=== PATIENT | female | born 1930 ===

== ENCOUNTER 2017-02-11 06:53 | Day surgery (SDC) | payer MEDICARE, MEDICAID ==
[2017-02-11 07:41] VITALS: BMI 21.2
--- NOTE | 2017-02-11 08:52 | CP.SDSHP ---
Same Day Surgery H & P - Previous Medical/Surgical History Comments: Arthritis, osteopenia - Allergies Allergies: Allergies No Known Allergies Allergy (Verified 10/10/16 15:35) - Current Medications Current Medications: See reconciliation sheet - Physical Exam General Appearance: WDW WN female in NAD Vital Signs: Vital Signs 02/11/17 07:32 Temperature 98.7 F Pulse Rate 77 Respiratory 19 Rate Blood Pressure 157/71 H O2 Sat by Pulse 100 Oximetry Mental Status: Alert & Oriented x3 Neuro: WNL Heart: WNL Lungs: WNL GI: WNL - {Optional Preform as Required} Abdomen: WNL - Impression Impression: Change in bowel habits Pt. Evaluated Today:Candidate for Anesthesia & Procedure: Yes - Date & Time Date: 02/11/17 Time: 08:52 Short Stay Discharge - Short Stay Discharge Admitting Diagnosis/Reason for Visit: CHANGE IN BOWEL HABITS Disposition: HOME/ ROUTINE
[2017-02-11] MEDS ORDERED: Propofol 10 mg/ml Inj (20 ML) ONE (08:53)
[2017-02-11 09:42] VITALS: TEMP 97
[2017-02-11 09:46] VITALS: O2SAT 100
[2017-02-11 10:07] VITALS: BP 134/73; PULSE 58; RESP 12
== END 2017-02-11 10:35 | disposition home or self-care (01) ==
LOC: C.ENDO 06:53
PROVIDERS: ATTEND Internal Medicine Gastroenterology
DX: D12.5 Benign neoplasm of sigmoid colon (principal); D12.4 Benign neoplasm of descending colon; D12.2 Benign neoplasm of ascending colon; D12.3 Benign neoplasm of transverse colon; K63.5 Polyp of colon; K57.30 Diverticulosis of large intestine without perforation or abscess without bleeding; M85.80 Other specified disorders of bone density and structure, unspecified site; M19.90 Unspecified osteoarthritis, unspecified site; Z79.899 Other long term (current) drug therapy
CPT/HCPCS: 45381; 45385; 88305; J2704

== ENCOUNTER 2017-06-06 19:52 | Emergency (ER) | payer OTHER, MEDICAID ==
[2017-06-06 19:52] VITALS: BMI 21.2
[2017-06-06 20:02] VITALS: RESP 18
[2017-06-06] MEDS ORDERED: Iohexol 240 (50 ml) PO STA (20:32)
[2017-06-06] MEDS ORDERED: Sodium Chloride 0.9% 1,000 ML IV ONE (20:32)
[2017-06-06] MEDS ORDERED: Sodium Chloride 0.9% 1,000 ML ONE ×2 (20:48)
[2017-06-06] MEDS ORDERED: Iohexol 240 (50 ml) ONE (20:48)
[2017-06-06 20:51] LABS: CHLORIDE 99 mmol/L (98-107); RBC URINE 1 /hpf (0-3); URINE BACTERIA OCC (<OCC); URINE BILIRUBIN NEGATIVE (NEGATIVE); URINE BLOOD 1+ (NEGATIVE); URINE CALCIUM OXALATE CRYSTALS MOD /hpf (<OCC); URINE COLOR Yellow (YELLOW); URINE GLUCOSE (UA) NORMAL (Normal); URINE KETONE NEGATIVE (NEGATIVE); URINE PROTEIN NEGATIVE (NEGATIVE); URINE UROBILINOGEN NORMAL mg/dL (0.2-1.0); WBC URINE 6 /hpf (0-5)
[2017-06-06 20:52] LABS: POTASSIUM 3.9 mmol/L (3.6-5.2); SODIUM 135 mmol/L (132-148)
[2017-06-06 20:54] LABS: BASO # 0.1 K/uL (0.0-0.2); BASO % 0.6 % (0.0-2.0); EOS # 0.5 K/uL (0.0-0.7); EOS % 5.1 % (0.0-4.0); LYMPH # 2.1 K/uL (1.0-4.3); LYMPH % 22.9 % (20.0-40.0); MEAN CELL VOLUME 87.3 fL (81.0-99.0); MEAN CORPUSCULAR HEMOGLOBIN 29.7 pg (27.0-31.0); MEAN PLATELET VOLUME 8.3 fL (7.2-11.7); MONO # 0.9 K/uL (0.0-0.8); MONO % 9.7 % (0.0-10.0); RED CELL DISTRIBUTION WIDTH 13.5 % (11.5-14.5)
[2017-06-06 20:55] LABS: ALB/GLOB RATIO 1.2 (1.0-2.1); ALKALINE PHOSPHATASE 95 U/L (38-126); ALT/SGPT 32 U/L (9-52); AST/SGOT 29 U/L (14-36); BILIRUBIN,TOTAL 0.6 mg/dL (0.2-1.3); BLOOD UREA NITROGEN 16 mg/dL (7-17); CALCIUM 9.3 mg/dl (8.6-10.4); CARBON DIOXIDE 24 mmol/L (22-30); GFR AFRICAN-AMERICAN > 60; GLUCOSE,RANDOM 151 mg/dL (65-105)
[2017-06-06 21:10] LABS: URINE LEUKOCYTE ESTERASE 1+ Leu/uL (Negative)
--- NOTE | 2017-06-06 21:23 | C.PDOC ---
History Of Present Illness 87 year old female presents to the ED for evaluation of upper abdominal pain which began around 2 days ago. Patient also reports mild nausea but denies vomiting, fever, chills, dysuria, hematuria, or recent travel. Time Seen by Provider: 06/06/17 20:18 Chief Complaint (Nursing): Abdominal Pain History Per: Patient History/Exam Limitations: no limitations Onset/Duration Of Symptoms: Days (2) Current Symptoms Are (Timing): Still Present Location Of Pain/Discomfort: RUQ, LUQ Radiation Of Pain To:: None Quality Of Discomfort: "Pain" Associated Symptoms: Nausea (mild). denies: Fever, Chills, Vomiting Exacerbating Factors: None Alleviating Factors: None Recent travel outside of the [place]: No Additional History Per: Patient Abnormal Vaginal Bleeding: No Past Medical History Reviewed: Historical Data, Nursing Documentation, Vital Signs Vital Signs: Last Vital Signs Temp 97 F L 06/06/17 23:21 Pulse 82 06/06/17 23:21 Resp 18 06/06/17 23:21 BP 155/66 H 06/06/17 23:21 Pulse Ox 97 06/06/17 23:21 - Medical History PMH: Arthritis, Osteoporosis, Pancreatitis Denies: Chronic Kidney Disease Surgical History: Endoscopy, Tonsillectomy Family History: States: Unknown Family Hx - Social History Hx Tobacco Use: No Hx Alcohol Use: No Hx Substance Use: No - Immunization History Hx Tetanus Toxoid Vaccination: Yes Hx Influenza Vaccination: Yes (Last week) Hx Pneumococcal Vaccination: Yes (Last week) Review Of Systems Constitutional: Negative for: Fever, Chills Gastrointestinal: Positive for: Abdominal Pain (upper abdomen ) Genitourinary: Negative for: Dysuria, Hematuria Physical Exam - Physical Exam Appears: Non-toxic, No Acute Distress Skin: Normal Color, Warm, Dry Head: Atraumatic, Normacephalic Eye(s): bilateral: Normal Inspection Oral Mucosa: Moist Neck: Supple Chest: Symmetrical, No Deformity, No Tenderness Cardiovascular: Rhythm Regular, No Murmur Respiratory: Normal Breath Sounds, No Rales, No Rhonchi, No Wheezing Gastrointestinal/Abdominal: Soft, Tenderness (to epigastric and left upper quadrant on palpation ), No Guarding, No Rebound Extremity: Normal ROM, Capillary Refill (less than 2 seconds) Neurological/Psych: Oriented x3, Normal Speech, Normal Cognition Gait: Steady ED Course And Treatment - Laboratory Results Result Diagrams: 06/06/17 20:41 06/06/17 20:41 O2 Sat by Pulse Oximetry: 99 (on RA ) Pulse Ox Interpretation: Normal Progress Note: CT A/P, bloodwork, and urinalysis ordered and reviewed. Pepcid IVP and IV Fluids administered. Disposition - Disposition Referrals: Deepthi Ibrahim MD [Primary Care Provider] - Disposition: HOME/ ROUTINE Disposition Time: 22:40 Condition: GOOD Additional Instructions: Thank you for letting us take care of you today. Your provider was Dr. Neff. You were treated for urinary tract infection. The emergency medical care you received today was directed at your acute symptoms. If you were prescribed any medication, please fill it and take as directed. It may take several days for your symptoms to resolve. Return to the Emergency Department if your symptoms worsen, do not improve, or if you have any other problems. Please contact your doctor or call one of the physicians/clinics you have been referred to that are listed on the Patient Visit Information form that is included in your discharge packet. Bring any paperwork you were given at discharge with you along with any medications you are taking to your follow up visit. Our treatment cannot replace ongoing medical care by a primary care provider (PCP) outside of the emergency department. Thank you for allowing the [facility] team to be part of your care today. Follow up with your doctor in 2-3 days for re-evaluation and further management. Prescriptions: Nitrofurantoin Macrocrystals [Macrobid] 100 mg PO BID #10 cap Instructions: Urinary Tract Infection in Women (ED) - Clinical Impression Clinical Impression: Urinary tract infection, Abdominal pain - Scribe Statement The provider has reviewed the documentation as recorded by the Scribe (Diana Conway) Provider Attestation: All medical record entries made by the Scribe were at my direction and personally dictated by me. I have reviewed the chart and agree that the record accurately reflects my personal performance of the history, physical exam, medical decision making, and the department course for this patient. I have also personally directed, reviewed, and agree with the discharge instructions and disposition.
[2017-06-06] MEDS ORDERED: Iodixanol 320 MG/ML 100 ML BOTTLE IV ONE (21:30)
--- NOTE | 2017-06-06 22:38 | CT ---
EXAM: CT Abdomen and Pelvis With Intravenous Contrast CLINICAL HISTORY: 87 years old, female; Pain; Abdominal pain; Flank; Left lower quadrant (llq); Additional info: Abd pain - mid-abdominal pain TECHNIQUE: Axial computed tomography images of the abdomen and pelvis with intravenous contrast. All CT scans at this facility use one or more dose reduction techniques, viz.: automated exposure control; ma/kV adjustment per patient size (including targeted exams where dose is matched to indication; i.e. head); or iterative reconstruction technique. Coronal and sagittal reformatted images were created and reviewed. CONTRAST: 100 mL of visipaqie 320 administered intravenously. COMPARISON: No relevant prior studies available. FINDINGS: Lower thorax: Bibasilar interstitial thickening. Small hiatal hernia. ABDOMEN: Liver: No acute findings. Gallbladder and bile ducts: The gallbladder is decompressed. No calcified stones. No significant intra- or extrahepatic biliary ductal dilation. Pancreas: Increased attenuation within the head of the pancreas, a nonspecific finding. The remainder of the pancreas enhances homogeneously. No ductal dilation. No discrete mass. No peripancreatic inflammation. Spleen: No acute findings. Adrenals: No acute findings. Kidneys and ureters: No acute findings. No hydronephrosis or renal calculi. No discrete solid mass. PELVIS: Bladder: The bladder is moderately distended. Reproductive: The uterus is atrophic. Appendix: The air filled appendix is of normal caliber (series 3, image 122; series 601, image 41). ABDOMEN and PELVIS: Stomach and bowel: Oral contrast extends to the distal small bowel, without obstruction. No mucosal thickening. Peritoneum: No significant fluid collection. No free air. Lymph nodes: No pathologically enlarged lymph nodes. Vasculature: Calcified atherosclerotic disease. Bones: No acute fracture. IMPRESSION: No acute intra-abdominal pathology, as detailed above.
[2017-06-06 23:22] VITALS: BP 155/66; PULSE 82; TEMP 97
[2017-06-07 00:42] VITALS: O2SAT 99
== END 2017-06-06 23:25 | disposition home or self-care (01) ==
LOC: C.ER 19:52 → SUPCPDRO 19:52 → C.ER 23:25
DX: N39.0 Urinary tract infection, site not specified (principal); R10.10 Upper abdominal pain, unspecified
CPT/HCPCS: 74177; 80053; 81001; 83690; 85025; 96374; 99284; J7040; Q9966; Q9967

== ENCOUNTER 2017-08-07 10:20 | Emergency (ER) | payer MEDICARE, OTHER ==
[2017-08-07 10:21] VITALS: BMI 23.0
[2017-08-07 10:36] VITALS: O2SAT 96
[2017-08-07] MEDS ORDERED: Sodium Chloride 0.9% 1,000 ML IV ONE (10:47)
--- NOTE | 2017-08-07 10:54 | C.PDOC ---
History Of Present Illness 87 year old female presents to the ED for evaluation of abdominal pain for 1 day. Patient reports she goes to see Dr. Bucio. Patient also c/o occasional cough but denies fever, nausea, vomit, diarrhea, dysuria, hematuria, back pain. Time Seen by Provider: 08/07/17 10:38 Chief Complaint (Nursing): Abdominal Pain History Per: Patient History/Exam Limitations: no limitations Onset/Duration Of Symptoms: Hrs Current Symptoms Are (Timing): Still Present Location Of Pain/Discomfort: LUQ Radiation Of Pain To:: None Quality Of Discomfort: "Pain" Associated Symptoms: denies: Fever, Nausea, Vomiting, Diarrhea, Constipation Exacerbating Factors: denies: None Alleviating Factors: denies: None Recent travel outside of the [place]: No Additional History Per: Patient Abnormal Vaginal Bleeding: No Past Medical History Reviewed: Historical Data, Nursing Documentation, Vital Signs Vital Signs: Last Vital Signs Temp 97.6 F 08/07/17 12:57 Pulse 67 08/07/17 12:57 Resp 18 08/07/17 12:57 BP 146/68 08/07/17 12:57 Pulse Ox 96 08/07/17 13:34 - Medical History PMH: Arthritis, Osteoporosis, Pancreatitis Denies: Chronic Kidney Disease Surgical History: Endoscopy, Tonsillectomy Family History: States: Unknown Family Hx - Social History Hx Tobacco Use: No Hx Alcohol Use: No Hx Substance Use: No - Immunization History Hx Tetanus Toxoid Vaccination: Yes Hx Influenza Vaccination: No Hx Pneumococcal Vaccination: Yes Review Of Systems Constitutional: Negative for: Fever, Chills Cardiovascular: Negative for: Chest Pain, Palpitations Respiratory: Negative for: Cough, Shortness of Breath Gastrointestinal: Positive for: Abdominal Pain. Negative for: Nausea, Vomiting Genitourinary: Negative for: Dysuria, Hematuria Musculoskeletal: Negative for: Back Pain Skin: Negative for: Rash Neurological: Negative for: Weakness, Numbness Physical Exam - Physical Exam Appears: Non-toxic, No Acute Distress Skin: Normal Color, Warm, Dry Head: Atraumatic, Normacephalic Nose: No Discharge Oral Mucosa: Moist Neck: Normal Cardiovascular: Rhythm Regular Respiratory: Normal Breath Sounds Gastrointestinal/Abdominal: Soft, Tenderness (Mild LUQ), No Guarding, No Rebound Extremity: Normal ROM, No Pedal Edema, No Calf Tenderness, No Swelling Neurological/Psych: Oriented x3 ED Course And Treatment - Laboratory Results Result Diagrams: 08/07/17 11:05 08/07/17 11:05 Lab Interpretation: Normal ECG: Interpreted By Me ECG Rhythm: Sinus Rhythm, L BBB ECG Interpretation: No Changes From Prior Rate From EC O2 Sat by Pulse Oximetry: 96 (On RA) Pulse Ox Interpretation: Normal Progress Note: Treated with IVF NSS, pepcid. On re-evaluation abdomen soft non- tender, in no distress Reassessment Condition: Improved Medical Decision Making Medical Decision Making: Plan: * Blood work ordered * EKG ordered * Obstructive series ordered * Pepcid 20 mg IVP given * IV fluids given * UA ordered Disposition Counseled Patient/Family Regarding: Studies Performed, Diagnosis, Need For Followup, Rx Given - Disposition Referrals: Krishna Pickering MD [Non-Staff] - Disposition: HOME/ ROUTINE Disposition Time: 13:30 Condition: STABLE Additional Instructions: Follow up with PMD for further evaluation Prescriptions: Famotidine [Pepcid AC] 10 mg PO BID #20 tablet Instructions: Gastritis (ED), Diet for Ulcers and Gastritis (ED), Acute Abdominal Pain (ED) Forms: [employer] (Kazakh) - POA Present On Arrival: None - Clinical Impression Clinical Impression: Abdominal pain, Gastritis - PA / SERVICE DESK ANALYST / Resident Statement MD/DO has reviewed & agrees with the documentation as recorded. - Scribe Statement The provider has reviewed the documentation as recorded by the Scribe Jesus Nieto All medical record entries made by the Scribe were at my direction and personally dictated by me. I have reviewed the chart and agree that the record accurately reflects my personal performance of the history, physical exam, medical decision making, and the department course for this patient. I have also personally directed, reviewed, and agree with the discharge instructions and disposition.
[2017-08-07] MEDS ORDERED: Sodium Chloride 0.9% 1,000 ML ONE (11:06)
[2017-08-07 11:14] LABS: BASO % 0.5 % (0.0-2.0); EOS # 0.2 K/uL (0.0-0.7); EOS % 2.3 % (0.0-4.0); HEMATOCRIT 42.9 % (34.0-47.0); LYMPH # 1.7 K/uL (1.0-4.3); MEAN CELL VOLUME 88.3 fL (81.0-99.0); MEAN CORPUSCULAR HEMOGLOBIN 29.1 pg (27.0-31.0); MEAN PLATELET VOLUME 8.1 fL (7.2-11.7); MONO # 0.7 K/uL (0.0-0.8); MONO % 8.9 % (0.0-10.0); RED CELL DISTRIBUTION WIDTH 13.9 % (11.5-14.5); WHITE BLOOD COUNT 8.1 K/uL (4.8-10.8)
[2017-08-07 11:22] LABS: ALB/GLOB RATIO 1.3 (1.0-2.1); ALKALINE PHOSPHATASE 86 U/L (38-126); ALT/SGPT 27 U/L (9-52); AST/SGOT 26 U/L (14-36); BILIRUBIN,TOTAL 0.5 mg/dL (0.2-1.3); BLOOD UREA NITROGEN 15 mg/dL (7-17); CALCIUM 8.8 mg/dl (8.6-10.4); CARBON DIOXIDE 31 mmol/L (22-30); CHLORIDE 102 mmol/L (98-107); GFR AFRICAN-AMERICAN > 60; GLUCOSE,RANDOM 121 mg/dL (65-105); SODIUM 143 mmol/L (132-148); TOTAL PROTEIN 7.6 g/dL (6.3-8.3)
--- NOTE | 2017-08-07 12:14 | RAD ---
PROCEDURE: Radiographs of the chest and abdomen (obstructive series) HISTORY: Abd Pain COMPARISON: No prior. TECHNIQUE: AP radiograph of the chest, with upright and supine radiographs of the abdomen. FINDINGS: CHEST: Lungs: Clear. Cardiovascular: Normal size heart. No pulmonary vascular congestion. Pleura: No pleural fluid. No pneumothorax. 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 ABDOMEN AND PELVIS: Bowel: Mild retained feces. No evidence of bowel obstruction. Free air: None. Bones: Unremarkable. Other findings: None. IMPRESSION: Unremarkable radiographs of chest and abdomen. No evidence of mechanical bowel obstruction.
[2017-08-07 12:24] LABS: URINE BILIRUBIN NEGATIVE (NEGATIVE); URINE BLOOD 1+ (NEGATIVE); URINE COLOR Yellow (YELLOW); URINE GLUCOSE (UA) NORMAL (Normal); URINE KETONE NEGATIVE (NEGATIVE); URINE LEUKOCYTE ESTERASE TRACE Leu/uL (Negative); URINE PROTEIN NEGATIVE (NEGATIVE); URINE UROBILINOGEN NORMAL mg/dL (0.2-1.0)
[2017-08-07 12:29] LABS: RBC URINE 4 /hpf (0-3); URINE BACTERIA RARE (<OCC)
[2017-08-07 12:30] LABS: WBC URINE 1 /hpf (0-5)
[2017-08-07 12:58] VITALS: BP 146/68; PULSE 67; RESP 18; TEMP 97.6
--- NOTE | 2017-08-12 03:23 | CARD ---
APPROVED REPORT EKG Measurement Heart [id number] <Conclusion> Normal sinus rhythm Left bundle branch block Abnormal ECG
== END 2017-08-07 14:09 | disposition home or self-care (01) ==
LOC: C.ER 10:20
DX: K29.70 Gastritis, unspecified, without bleeding (principal); R10.12 Left upper quadrant pain
CPT/HCPCS: 74022; 80053; 81001; 83690; 84484; 85025; 96374; 99284; J7040

== ENCOUNTER 2017-08-19 11:27 | Emergency (ER) | payer OTHER ==
[2017-08-19 11:27] VITALS: BMI 23.0
[2017-08-19 11:43] VITALS: TEMP 98
[2017-08-19] MEDS ORDERED: Iohexol 240 (50 ml) PO STA (13:20)
[2017-08-19] MEDS ORDERED: Lactated Ringer's 1,000 ML IV STA (13:20)
[2017-08-19] MEDS ORDERED: Iohexol 240 (50 ml) ONE (13:41)
[2017-08-19] MEDS ORDERED: Lactated Ringer's 1,000 ML ONE (13:41)
[2017-08-19 13:47] LABS: BASO % 0.5 % (0.0-2.0); EOS # 0.1 K/uL (0.0-0.7); EOS % 1.6 % (0.0-4.0); HEMATOCRIT 43.7 % (34.0-47.0); LYMPH # 2.2 K/uL (1.0-4.3); LYMPH % 24.4 % (20.0-40.0); MEAN CELL VOLUME 88.2 fL (81.0-99.0); MEAN CORPUSCULAR HEMOGLOBIN 29.7 pg (27.0-31.0); MEAN CORPUSCULAR HGB CONC 33.7 g/dL (33.0-37.0); MONO # 0.9 K/uL (0.0-0.8); MONO % 9.9 % (0.0-10.0); RED CELL DISTRIBUTION WIDTH 14.2 % (11.5-14.5); WHITE BLOOD COUNT 9.2 K/uL (4.8-10.8)
[2017-08-19 13:56] LABS: RBC URINE 7 /hpf (0-3); URINE BACTERIA RARE (<OCC); URINE BILIRUBIN NEGATIVE (NEGATIVE); URINE BLOOD 1+ (NEGATIVE); URINE COLOR Straw (YELLOW); URINE GLUCOSE (UA) NORMAL (Normal); URINE KETONE NEGATIVE (NEGATIVE); URINE LEUKOCYTE ESTERASE 2+ Leu/uL (Negative); URINE PROTEIN NEGATIVE (NEGATIVE); URINE UROBILINOGEN NORMAL mg/dL (0.2-1.0); WBC URINE 8 /hpf (0-5)
[2017-08-19 14:10] LABS: POTASSIUM 3.7 mmol/L (3.6-5.2)
[2017-08-19 14:17] LABS: ALKALINE PHOSPHATASE 101 U/L (38-126); ALT/SGPT 31 U/L (9-52); AST/SGOT 34 U/L (14-36); BILIRUBIN,TOTAL 0.5 mg/dL (0.2-1.3); BLOOD UREA NITROGEN 16 mg/dL (7-17); CARBON DIOXIDE 30 mmol/L (22-30); CHLORIDE 100 mmol/L (98-107); GFR AFRICAN-AMERICAN > 60; GLUCOSE,RANDOM 119 mg/dL (65-105); SODIUM 139 mmol/L (132-148); TOTAL PROTEIN 9.1 g/dL (6.3-8.3)
--- NOTE | 2017-08-19 15:58 | C.PDOC ---
History Of Present Illness 87yo female presents to ED with complaints of abdominal pain for the past couple days. Patient states pain was epigastric and now is present in her right lower quadrant. She denies any nausea, vomiting, fever, change in appetite, dysuria, hematuria, or bloody stools. No other complaints. Time Seen by Provider: 08/19/17 13:15 Chief Complaint (Nursing): Abdominal Pain History Per: Patient History/Exam Limitations: no limitations Onset/Duration Of Symptoms: Days Current Symptoms Are (Timing): Still Present Location Of Pain/Discomfort: RLQ, Epigastric Associated Symptoms: denies: Fever, Nausea, Vomiting, Urinary Symptoms Past Medical History Reviewed: Historical Data, Nursing Documentation, Vital Signs Vital Signs: Last Vital Signs Temp 98 F 08/19/17 11:39 Pulse 65 08/19/17 17:18 Resp 20 08/19/17 17:18 BP 157/67 H 08/19/17 17:18 Pulse Ox 98 08/19/17 17:18 - Medical History PMH: Arthritis, Osteoporosis, Pancreatitis Denies: Chronic Kidney Disease Surgical History: Endoscopy, Tonsillectomy Family History: States: Unknown Family Hx - Social History Hx Tobacco Use: No Hx Alcohol Use: No Hx Substance Use: No - Immunization History Hx Tetanus Toxoid Vaccination: Yes Hx Influenza Vaccination: No Hx Pneumococcal Vaccination: Yes Review Of Systems Except As Marked, All Systems Reviewed And Found Negative. Constitutional: Negative for: Fever Gastrointestinal: Positive for: Abdominal Pain. Negative for: Nausea, Vomiting , Hematochezia Genitourinary: Negative for: Dysuria, Hematuria Physical Exam - Physical Exam Appears: Non-toxic, No Acute Distress Skin: Normal Color, Warm Head: Atraumatic, Normacephalic Eye(s): bilateral: Normal Inspection Nose: Normal Neck: Normal ROM, Supple Cardiovascular: Rhythm Regular Respiratory: Normal Breath Sounds Gastrointestinal/Abdominal: Soft, Tenderness (mild right lower quadrant tenderness) Back: Normal Inspection Extremity: Normal ROM, No Deformity, No Swelling Neurological/Psych: Oriented x3, Normal Speech, Normal Cognition ED Course And Treatment - Laboratory Results Result Diagrams: 08/19/17 13:42 08/19/17 13:42 O2 Sat by Pulse Oximetry: 100 (RA) Pulse Ox Interpretation: Normal Medical Decision Making Medical Decision Making: Plan: -- CT Abdomen/Pelvis with Contrast -- Labs -- Lactated Ringers IV -- Pepcid 20 mg IVP Disposition - Disposition Referrals: Marilyn Nolan, [Non-Staff] - Disposition: HOME/ ROUTINE Disposition Time: 16:50 Condition: IMPROVED Additional Instructions: Thank you for letting us take care of you today. The emergency medical care you received today was directed at your acute symptoms. If you were prescribed any medication, please fill it and take as directed. It may take several days for your symptoms to resolve. Return to the Emergency Department if your symptoms worsen, do not improve, or if you have any other problems. Please contact your doctor or call one of the physicians/clinics you have been referred to that are listed on the Patient Visit Information form that is included in your discharge packet. Bring any paperwork you were given at discharge with you along with any medications you are taking to your follow up visit. Our treatment cannot replace ongoing medical care by a primary care provider (PCP) outside of the emergency department. Thank you for allowing the [facility] team to be part of your care today. Follow up with your doctor or the clinic for outpatient care and management. Prescriptions: Ranitidine HCl [Zantac] 150 mg PO BID #20 tablet Instructions: Gastritis (ED) Forms: [facility] (Kazakh) - Clinical Impression Clinical Impression: Abdominal pain - Scribe Statement The provider has reviewed the documentation as recorded by the Herlinda Ramirez Provider Attestation: All medical record entries made by the Herlinda were at my direction and personally dictated by me. I have reviewed the chart and agree that the record accurately reflects my personal performance of the history, physical exam, medical decision making, and the department course for this patient. I have also personally directed, reviewed, and agree with the discharge instructions and disposition.
[2017-08-19] MEDS ORDERED: Iodixanol 320 MG/ML 100 ML BOTTLE IV ONE (16:12)
--- NOTE | 2017-08-19 16:46 | CT ---
PROCEDURE: CT Abdomen and Pelvis with contrast HISTORY: RLQ tenderness COMPARISON: Comparison is with TECHNIQUE: Contrast dose: 100 mL Visipaque 320. Axial and reformatted coronal and sagittal CT images of the abdomen and pelvis were obtained after IV and oral contrast administration. Radiation dose: Total exam DLP = 277.21 mGy-cm. This CT exam was performed using one or more of the following dose reduction techniques: Automated exposure control, adjustment of the mA and/or kV according to patient size, and/or use of iterative reconstruction technique. FINDINGS: LOWER THORAX: Unremarkable. LIVER: Unremarkable. No gross lesion or ductal dilatation. GALLBLADDER AND BILE DUCTS: Unremarkable. PANCREAS: No evidence of acute pancreatitis. The main pancreatic duct is not dilated. Pancreas demonstrate mild heterogeneous attenuation and appears slightly small in size. SPLEEN: Unremarkable. ADRENALS: Unremarkable. No mass. KIDNEYS AND URETERS: Unremarkable. No hydronephrosis. No solid mass. VASCULATURE: Unremarkable. No aortic aneurysm. Moderate atherosclerotic disease and scattered foci of calcification are again noted. BOWEL: Unremarkable. No obstruction. No gross mural thickening. APPENDIX: There is no evidence of appendicitis. PERITONEUM: Unremarkable. No free fluid. No free air. LYMPH NODES: Unremarkable. No enlarged lymph nodes. BLADDER: Unremarkable. REPRODUCTIVE: Unremarkable. BONES: No acute fracture. OTHER FINDINGS: Foci of subcutaneous calcification at the posterior aspect of the buttocks are noted bilaterally. IMPRESSION: No evidence of acute pathology in the abdomen and pelvis. No CT evidence of acute cholecystitis pancreatitis or appendicitis. No significant interval change noted since the previous exam.
[2017-08-19 16:49] VITALS: RESP 20
[2017-08-19 17:18] VITALS: BP 157/67; PULSE 65
[2017-08-19 18:42] VITALS: O2SAT 100
--- NOTE | 2017-08-20 18:29 | CARD ---
APPROVED REPORT EKG Measurement Heart [id number] <Conclusion> Normal sinus rhythm Left bundle branch block Abnormal ECG
== END 2017-08-19 17:28 | disposition home or self-care (01) ==
LOC: C.ER 11:27
DX: R10.9 Unspecified abdominal pain (principal)
CPT/HCPCS: 74177; 80053; 81001; 83690; 85025; 87086; 93005; 96374; 99285; J7120; Q9966; Q9967

== ENCOUNTER 2017-09-09 06:20 | Day surgery (SDC) | payer OTHER ==
[2017-09-09] MEDS ORDERED: Propofol 10 mg/ml Inj (20 ML) ONE ×2 (07:55→08:26)
[2017-09-09] MEDS ORDERED: Lidocaine Hydrochloride 5 ML INJ ONE (08:27)
[2017-09-09 08:42] VITALS: TEMP 97.8
[2017-09-09 08:49] VITALS: O2SAT 100
[2017-09-09 09:12] VITALS: BP 135/65; PULSE 68; RESP 16
== END 2017-09-09 09:50 | disposition home or self-care (01) ==
LOC: C.ENDO 06:20
PROVIDERS: ATTEND Internal Medicine
DX: Z87.19 Personal history of other diseases of the digestive system (principal); K82.8 Other specified diseases of gallbladder; K29.70 Gastritis, unspecified, without bleeding; K44.9 Diaphragmatic hernia without obstruction or gangrene
CPT/HCPCS: 43231; 88305; 88312; 88313; 88342; J2704

== ENCOUNTER 2017-10-01 19:58 | Emergency (ER) | payer OTHER ==
[2017-10-01 19:58] VITALS: BMI 23.0
--- NOTE | 2017-10-01 20:50 | C.PDOC ---
History Of Present Illness 87yo female with history of arthritis, gastritis, and pancreatitis presents to ED with various complaints. She stats for the past few weeks, she has had diffuse bodyaches, back pain, shoulder pain and hip pain as well. She denies any trauma or injuries. Patient also reports abdominal pain; she denies any nausea, vomiting, diarrhea or constipation. of note, patient has been seen at this facility multiple times for similar presentation. Time Seen by Provider: 10/01/17 20:32 Chief Complaint (Nursing): Back Pain History Per: Patient History/Exam Limitations: no limitations Onset/Duration Of Symptoms: Persistent Current Symptoms Are (Timing): Still Present Quality Of Discomfort: "Pain" Past Medical History Reviewed: Historical Data, Nursing Documentation, Vital Signs Vital Signs: Last Vital Signs Temp 98.1 F 10/01/17 20:04 Pulse 71 10/01/17 20:04 Resp 20 10/01/17 20:04 BP 134/78 10/01/17 20:04 Pulse Ox 100 10/01/17 21:26 - Medical History PMH: Arthritis, Gastritis, Osteoporosis, Pancreatitis Denies: Chronic Kidney Disease Surgical History: Endoscopy, Tonsillectomy Family History: States: Unknown Family Hx - Social History Hx Tobacco Use: No Hx Alcohol Use: No Hx Substance Use: No - Immunization History Hx Tetanus Toxoid Vaccination: No Hx Influenza Vaccination: Yes Hx Pneumococcal Vaccination: No Review Of Systems Except As Marked, All Systems Reviewed And Found Negative. Constitutional: Negative for: Fever, Chills Gastrointestinal: Positive for: Abdominal Pain. Negative for: Nausea, Vomiting , Diarrhea Musculoskeletal: Positive for: Shoulder Pain, Back Pain, Other (hip pain) Physical Exam - Physical Exam Appears: Non-toxic, No Acute Distress Skin: Warm, Dry Head: Atraumatic, Normacephalic Eye(s): bilateral: Normal Inspection Neck: Normal ROM, No Midline Cervical Tenderness, No Paracervical Tenderness, Supple Chest: Symmetrical Cardiovascular: Rhythm Regular Respiratory: Normal Breath Sounds Gastrointestinal/Abdominal: Soft, Tenderness (mild epigastric tenderness) Back: Normal Inspection, No CVA Tenderness, No Vertebral Tenderness Extremity: Normal ROM, No Tenderness, No Pedal Edema Neurological/Psych: Oriented x3 ED Course And Treatment - Laboratory Results Result Diagrams: 10/01/17 20:57 10/01/17 20:57 O2 Sat by Pulse Oximetry: 100 (RA) Pulse Ox Interpretation: Normal Medical Decision Making Medical Decision Making: Impression: Abdominal pain, musculoskeletal pain, arthritis- no h/o of trauma- labs imaging pending Plan: -- Zofran 4mg IVP -- Protonix 40mg IVP -- Labs pt reassesed abd soft no ttp, pt with 4 ct abd/pelvis in last year, pain resolved. no h/o of trauma. advise contineud outpt fu and return precautions Disposition - Disposition Disposition: HOME/ ROUTINE Disposition Time: 21:25 Condition: STABLE Additional Instructions: please follow up with your doctor. you may need additional workup as an outpatient. return to er with any worsening symptoms or concerns. Instructions: Acute Abdominal Pain (ED), Arthralgia (ED) Forms: [employer] (Luxembourgish) Print Language: SLOVENIAN - Clinical Impression Clinical Impression: Abdominal pain, Body aches - Scribe Statement The provider has reviewed the documentation as recorded by the Scribe (Ashley Ramirez) Provider Attestation: All medical record entries made by the Scribe were at my direction and personally dictated by me. I have reviewed the chart and agree that the record accurately reflects my personal performance of the history, physical exam, medical decision making, and the department course for this patient. I have also personally directed, reviewed, and agree with the discharge instructions and disposition.
[2017-10-01 21:02] LABS: BASO % 0.5 % (0.0-2.0); EOS # 0.1 K/uL (0.0-0.7); EOS % 1.6 % (0.0-4.0); HEMOGLOBIN 12.9 g/dL (11.0-16.0); LYMPH % 22.4 % (20.0-40.0); MEAN CELL VOLUME 88.4 fL (81.0-99.0); MEAN CORPUSCULAR HEMOGLOBIN 30.4 pg (27.0-31.0); MEAN CORPUSCULAR HGB CONC 34.4 g/dL (33.0-37.0); MEAN PLATELET VOLUME 7.8 fL (7.2-11.7); MONO # 0.6 K/uL (0.0-0.8); MONO % 7.1 % (0.0-10.0); NEUT # 6.1 K/uL (1.8-7.0); NEUT % 68.4 % (50.0-75.0); RBC 4.25 Mil/uL (3.80-5.20); RED CELL DISTRIBUTION WIDTH 14.4 % (11.5-14.5); WHITE BLOOD COUNT 8.9 K/uL (4.8-10.8)
[2017-10-01 21:10] LABS: INR 1.2; PROTHROMBIN TIME 12.9 SECONDS (9.7-12.2); SQUAMOUS EPITHIAL 1 /hpf (0-5); URINE BILIRUBIN NEGATIVE (NEGATIVE); URINE BLOOD 1+ (NEGATIVE); URINE CLARITY Clear (Clear); URINE COLOR Straw (YELLOW); URINE GLUCOSE (UA) NORMAL (Normal); URINE LEUKOCYTE ESTERASE TRACE Leu/uL (Negative); URINE NITRATE NEGATIVE (NEGATIVE); URINE PROTEIN NEGATIVE (NEGATIVE); URINE UROBILINOGEN NORMAL mg/dL (0.2-1.0)
[2017-10-01 21:13] LABS: ALB/GLOB RATIO 1.2 (1.0-2.1); ALBUMIN 3.8 g/dL (3.5-5.0); ALT/SGPT 25 U/L (9-52); AST/SGOT 23 U/L (14-36); BLOOD UREA NITROGEN 10 mg/dL (7-17); CALCIUM 8.8 mg/dl (8.6-10.4); GFR AFRICAN-AMERICAN > 60; GFR NON-AFRICAN AMERICAN > 60; LIPASE 71 U/L (23-300)
[2017-10-01 21:38] VITALS: BP 128/60; PULSE 76; RESP 18; TEMP 98; O2SAT 96
== END 2017-10-01 21:45 | disposition home or self-care (01) ==
LOC: C.ER 19:58
DX: R10.13 Epigastric pain (principal)
CPT/HCPCS: 80053; 81001; 83690; 85025; 85610; 85730; 96374; 96375; 99284; C9113; J2405